=== PATIENT | female | born 1945 | race African-American/Black ===

== ENCOUNTER 2017-07-11 00:33 | Emergency (ER) | payer MEDICARE ==
[~2017-07-11] VITALS: Ht 167.6 cm; Wt 59.5 kg
[~2017-07-11 00:33] MED LIST: LOSA25TA12 PO
[2017-07-11] MEDS ORDERED: SODIUM CHLORIDE 0.9% 1,000 ML IV ONE (09:52)
[2017-07-11] MEDS ORDERED: LOSARTAN POTASSIUM 50 MG TABLET PO ONE (10:00)
[2017-07-11 10:10] LABS: EOSINOPHILS % 0.7 % (0.0-5.0); HEMOGLOBIN. 12.3 g/dL (12.0-16.0); LYMPHOCYTES % 28.6 % (20.0-50.0); MEAN CORPUSCULAR HEMOGLOBIN 33.1 pg (28.0-32.0); MEAN CORPUSCULAR VOLUME 99.7 fL (81.0-99.0); MEAN PLATELET VOLUME 8.2 fl (7.4-10.4); MONOCYTES % 12.2 % (2.0-8.0); NEUTROPHILS % 57.5 % (40.0-76.0); PLATELET 299 x1000/uL (130-400); RED BLOOD CELL COUNT 3.71 mill/uL (4.2-5.4)
[2017-07-11 10:15] LABS: CHLORIDE 106 mEq/L (98-107)
[2017-07-11 10:17] LABS: INR 1.1
[2017-07-11 10:23] LABS: CARBON DIOXIDE 28 mEq/L (21-32)
[2017-07-11 11:02] LABS: CLARITY URINE CLEAR (CLEAR); COLOR URINE YELLOW (YELLOW); KETONES URINE NEGATIVE (NEGATIVE); LEUKOCYTE ESTERASE URINE NEGATIVE (NEGATIVE); NITRITE URINE NEGATIVE (NEGATIVE); OCCULT BLOOD URINE NEGATIVE (NEGATIVE); PROTEIN URINE NEGATIVE (NEGATIVE); SPECIFIC GRAVITY URINE 1.006 (1.005-1.030); UROBILINOGEN URINE 0.2 E.U./dL (0.2-1.0)
[2017-07-11] MEDS ORDERED: CLONIDINE 0.1MG TABLET PO ONE (13:00)
[2017-07-11] MEDS ORDERED: LABETALOL 5MG/ML SYR 20 MG/4 ML SYRINGE IV ONE (13:45)
[2017-07-11 14:31] VITALS: BP 157/98
== END 2017-07-11 15:03 | disposition home or self-care (01) ==
LOC: ER 00:33
DX: R53.1 Weakness (principal); M79.605 Pain in left leg; M79.604 Pain in right leg; I10 Essential (primary) hypertension; F12.10 Cannabis abuse, uncomplicated; J84.10 Pulmonary fibrosis, unspecified; Z88.2 Allergy status to sulfonamides; Z91.012 Allergy to eggs; Z87.891 Personal history of nicotine dependence; Z98.890 Other specified postprocedural states
CPT/HCPCS: 36415; 71045; 80053; 81003; 84484; 85025; 85610; 93005; 93970; 96360; 99285; J3490; J7030